=== PATIENT | female | born 1990 | race Caucasian/White ===

== ENCOUNTER 2020-12-22 03:26 | Observation (INO) | payer BC, SELFPAY ==
[2020-12-22] VITALS (16 sets, daily range): BP systolic 118–153; BP diastolic 68–112; PULSE 87–117; RESP 14–27; TEMP 36.9–37.1; O2SAT 97–100; BMI 26.5
--- NOTE | ~2020-12-22 | US_ITS ---
EXAMINATION: US OB <=14 wk fetus w TV DATE: 12/22/2020 09:28 INDICATION: Vaginal bleeding. Beta-hCG is 203 mIU/mL. TECHNIQUE: Real-time transabdominal and transvaginal pelvic ultrasound was performed. COMPARISON: None. FINDINGS: TRANSABDOMINAL ULTRASOUND: The uterus measures 6.7 x 3.6 x 4.5 cm. TRANSVAGINAL ULTRASOUND: The endometrial complex measures 4 mm in diameter. There is no visible intra uterine gestational sac. The right ovary measures 2.4 x 1.8 x 2.4 cm. There is a 5.4 x 3.2 x 5.3 cm left adnexal mass that is hyperechoic with area of shadowing and small cystic areas. There is no free fluid in the pelvis. IMPRESSION: 1. No visible intrauterine gestational sac, which may be normal in early . Spontaneous abor tion and ectopic are not excluded. Serial beta-hCGs are recommended. 2. Left adnexal mass. The differential diagnosis includes dermoid, hemorrhagic cyst, and less likely ectopic . Reviewed, dictated and finalized at location A. IMPRESSION: 1. No visible intrauterine gestational sac, which may be normal in early pregn alexey. Spontaneous and ectopic are not excluded. Serial beta- hCGs are recommended. 2. Left adnexal mass. The differential diagnosis includes dermoid, hemorrhagic cyst, and less likely ectopic .
--- NOTE | ~2020-12-22 | CT_ITS ---
EXAMINATION: CT brain wo con EXAM DATE: 12/22/2020 07:30 INDICATION: Seizure, left frontal head injury, eye bruising. Hallucination. TECHNIQUE: Spiral CT of the head was performed without contrast. Axial, coronal and sagittal images were reviewed. The dose-length product (DLP) for this examination was 605.33 mGy-cm. The exposure w as tailored according to patient size, and iterative reconstruction (ASIR) was used as additional dos e reduction technique. There is no prior study for comparison. FINDINGS: There is no acute intraparenchymal hemorrhage. No evidence of intraparenchymal brain mass lesion. No evidence of acute infarction. There is no mass effect or midline shift. The ventricles are normal in size. There are no extra-axial collections. There are no acute calvarial fractures. T he orbits are unremarkable. Soft tissue is unremarkable. The visualized sinuses and mastoid air kosta ls are well aerated. IMPRESSION: 1. No acute intracranial findings. Reviewed, dictated and finalized at location A.
--- NOTE | 2020-12-22 03:47 | PC.NURSE ---
Pt presents to ED with homicidal and suicidal ideations. Pt states she has been having thoughts of committing suicide for at least a year and plans to use a gun. Pt also states that she has plans to commit homicide on her using a gun and has had these thoughts for the past several months. Mom presented to ED with pt. Pt states she is a daily drinker of approx 1 gallon of vodka per day. Pt states she has been attempting to become sober and has not had a drink in over 12 hours. Pt noted with visible tremors. Pt placed on suicide precautions, body and clothing searched for weapons, all clothing removed and placed in personal belonging bags, labeled and placed in locked cabinet. Pt undressed and dressed in teal scrubs. All lose and unnecessary items removed from room, personal items placed in locked cabinet. Pt remains on remote sensing specialist due to dt's. Urine specimen collected and bedside positive. Pt vitals are stable and pt noted to be alert and oriented x3-4. Pt in no obvious distress. Sitter present at bedside.
--- NOTE | 2020-12-22 04:15 | ECG_ITS ---
Measurements Intervals [place] Rate: 94 P: 37 ME: 131 QRS: 74 QRSD: 94 T: 60 QT: 381 QTc: 478 Interpretive Statements SINUS RHYTHM MINIMAL Q WAVES- DIFFUSE LEADS BORDERLINE ECG Electronically Signed On 12-22-2020 9:37:25 CDT by Mark Mansfield D.O.
--- NOTE | 2020-12-22 04:24 | PC.NURSE ---
EDMD presented to bedside.
[2020-12-22] MEDS: ONDANSETRON INJ 4 MG/2 ML VIAL IV PUSH (04:45)
[2020-12-22] MEDS: LACTATED RINGERS 1,000 ML 999 ML IV CONT (04:45)
[2020-12-22] MEDS: LORazepam INJ (*CRX) 2 MG/ML VIAL IV PUSH (04:46)
[2020-12-22 04:48] LABS: Basophils Absolute Auto 0.1 K/mm3 (0.0-0.1); Basophils Percent Auto 1.3 % (0.2-1.2); Eosinophils Absolute Auto 0.1 K/mm3 (0-0.3); Eosinophils Percent Auto 1.9 % (0-4.4); Hematocrit 40.8 % (37.0-47.0); Hemoglobin 14.3 g/dL (12.0-15.0); Immature Granulocyte Absolute 0.02 K/mm3 (0.00-0.031); Immature Granulocyte Percent A 0.3 % (0-0.5); Lymphocytes Absolute Auto 1.11 K/mm3 (0.9-3.2); Lymphocytes Percent Auto 16.4 % (18.3-44.2); Mean Corpuscular Hemoglobin 30.8 pg (26-34); Mean Corpuscular Volume 87.9 fl (80-100); Monocytes Absolute Auto 0.4 K/mm3 (0.1-0.6); Monocytes Percent Auto 6.2 % (2.6-8.5); Neutrophils Percent Auto 73.9 % (45.5-73.1); Platelet Count Result 182 k/mm3 (150-375); Red Blood Count 4.64 M/mm3 (4.2-5.4); Red Cell Distribution Width 13.2 % (11.5-14.5); White Blood Count 6.8 K/mm3 (4.5-10.0)
[2020-12-22 04:56] LABS: Add Urine Microscopic? YES; Appearance Urine Cloudy (Clear); Bacteria Urine Trace /hpf; Bilirubin Urine Negative (Negative); Blood Urine 2+ (Negative); Color Urine Yellow (Yellow); Glucose Urine UA Negative (Negative); Ketones Urine 1+ mg/dL (Negative); Leukocyte Esterase Ur Negative LEU/UL (Negative); Mucus Urine Heavy /lpf; Nitrate Urine Negative (Negative); Protein Urine 2+ mg/dL (Negative); Specific Grav Ur 1.027 (1.001-1.035); Squamous Epithelial Cell Urine Many /hpf (Few); WBC Urine 0-3 /hpf
[2020-12-22 05:02] LABS: INR 0.9; Prothrombin Time 13.2 Seconds (11.1-14.7)
[2020-12-22 05:04] LABS: Acetaminophen < 10 ug/mL (10-30); Ammonia < 9 umol/L (9-30); Ethanol < 10 mg/dL (<10); Salicylate < 1.0 mg/dL (2-20)
[2020-12-22 05:05] LABS: Alanine Aminotransferase 66 U/L (4-35); Albumin Level 4.7 g/dL (3.5-5.1); Alkaline Phosphatase 77 U/L (38-126); Anion Gap 15 mmol/L (8-16); Aspartate Amino Transferase 113 U/L (14-36); Bilirubin,Total 1.4 mg/dL (0.2-1.3); Blood Urea Nitrogen 8 mg/dL (7-17); Calcium 9.4 mg/dL (8.4-10.2); Carbon Dioxide 25 mmol/L (22-30); Chloride 99 mmol/L (98-107); Estimated CRCL calculation 114 ml/min; Estimated Glomerular Filt Rate > 60; Glucose 81 mg/dL (65-105); Potassium 3.1 mmol/L (3.4-5.0); Sodium 139 mmol/L (137-145)
[2020-12-22 05:20] LABS: Amphetamine Screen Urine Negative (Negative); Barbiturate Screen Urine Negative (Negative); Benzodiazepines Screen Urine Negative (Negative); Cannabinoid Screen Urine Negative (Negative); Cocaine Screen Urine Positive (Negative); Methadone Screen Urine Negative (Negative); Opiate Screen Urine Negative (Negative); Phencyclidine Screen Urine Negative (Negative)
[2020-12-22 05:22] LABS: Beta HCG Quantitative 202.61 mIU/ML
--- NOTE | 2020-12-22 07:20 | ED.ALCOHOL ---
HPI - Alcohol General Chief Complaint: Alcohol Stated Complaint: etoh withdrawl seizure Time Seen by Provider: 12/22/20 03:39 Source: patient Mode of arrival: ambulatory Limitations: no limitations History of Present Illness HPI narrative: This is a 30 year old female with history of alcohol abuse who presents for evaluation of alcohol withdrawal. She states she has been drinking approximately a gallon of vodka per day for 5 months. She states her last drink of alcohol was 12 hours ago . Two hours after her last drink she started having hallucinations with nausea and restlessness. She thinks she had a seizure last week. She was told that she was having convulsions. She denies headache, chest pain, sob. She states she thought she was on her menstrual cycle but her test was positive here. She reports vaginal bleeding currently that has been going on for a few days. She denies abdominal pain. Related Data Allergies Allergy/AdvReac Type Severity Reaction Status Date / Time No Known Allergies Allergy Mild Verified 08/29/10 17:39 Review of Systems Review of Systems: All systems reviewed & are unremarkable except as noted in HPI and below PMFSH Past Medical History Medical History Alcohol abuse Surgical History Surgical History (Updated 12/22/20 @ 07:29 by Sol Salinas MD) No pertinent past surgical history Social History Social History (Updated 12/22/20 @ 07:29 by Sol Salinas MD) Smoking status: Never smoker Alcohol intake: current Gender identity (if verbalized by the patient): Female Exam Const: General: alert Orientation/consciousness: patient oriented x3 HENMT: Other: left periorbital ecchymosis Eyes: Pupils: Equal, round and reactive pupils present EOM: EOMs intact bilaterally Resp: Effort & Inspection: normal respiratory effort and no retractions Auscultation: clear to auscultation bilaterally Cardio: Rate: regular rate Rhythm: regular rhythm Heart sounds: no murmurs GI: GI Palp: Yes Soft to palpation, No Tenderness to palpation present (GI) and No Guarding due to palpation present (GI) Auscultation: normal bowel sounds Skin: General skin exam: normal color Rashes: no rashes Neuro: General: patient oriented x3, moves all extremities and CN's II-XI intact bilaterally Other: tremulous Psych: Affect: Anxious affect present Course Consultations Consultation #1: I Discussed case with DR. Parikh. He accepts patient to IMU for alcohol withdrawal. I will place order for librium 25 mg q 6 hours with banana bag. He is aware patient is and she is pending US. She is likely have a miscarriage. Date: 12/22/20 Time: 08:10 Vital Signs Vital signs: Vital Signs Temperature 98.4 F 12/22/20 03:30 Pulse Rate 99 12/22/20 03:30 Respiratory Rate 18 12/22/20 03:30 Pulse Oximetry 100 12/22/20 03:30 Temperature 98.4 F 12/22/20 03:30 Pulse Rate 111 H 12/22/20 08:00 Respiratory Rate 14 12/22/20 08:00 Blood Pressure 153/103 H 12/22/20 08:00 Pulse Oximetry 99 12/22/20 08:00 MDM - Alcohol Lab Data Attestation: I reviewed the patient's lab results. Result diagrams: 12/22/20 04:27 12/22/20 04:27 Labs: Lab Results 12/22/20 12/22/20 12/22/20 Range/Units 04:27 04:27 04:27 WBC 6.8 (4.5-10.0) K/mm3 RBC 4.64 (4.2-5.4) M/mm3 Hgb 14.3 (12.0-15.0) g/dL Hct 40.8 (37.0-47.0) % MCV 87.9 (80-100) fl MCH 30.8 (26-34) pg MCHC 35.0 (32-36) g/dl RDW 13.2 (11.5-14.5) % Plt Count 182 (150-375) k/mm3 MPV 9.0 (7.4-10.4) fl Immature Gran % (Auto) 0.3 (0-0.5) % Neut % (Auto) 73.9 H (45.5-73.1) % Lymph % (Auto) 16.4 L (18.3-44.2) % Sebastian % (Auto) 6.2 (2.6-8.5) % Eos % (Auto) 1.9 (0-4.4) % Baso % (Auto) 1.3 H (0.2-1.2) % Lymph # (Auto) 1.11 (0.9-3.2) K/mm3 Sebastian # (Auto) 0.4 (0.1-0.6) K/mm3 Eos # (Auto) 0.1 (0-
[2020-12-22] MEDS: THIAMINE HCL INJ 100 MG, FOLIC ACID INJ 1 MG, MULTIVITAMINS-12 INJ VIAL 1 5 ML, MULTIVI... IV CONT (09:30)
--- NOTE | 2020-12-22 11:00 | ADMGEN ---
This patient, Bal Johnson, was admitted to Intensive Care Unit-11. Patient/family oriented to hospital policies and general routines including ID bracelet, bed and alarms, visiting hours, pain management, procedures, bathroom and other care routines, personal items, smoking policy, room service/diet, and visiting hours. Information on how to activate the Rapid Response Team has been discussed. Patient/Family are encouraged to report perceived risks to care and to ask questions if they do not understand what they are told or what they should do.
[2020-12-22] MEDS: LORazepam INJ (*CRX) 2 MG/ML VIAL 1 MG IV PUSH (11:25)
[2020-12-22] MEDS: chlordiazePOXIDE (*CRX) 25 MG CAPSULE PO ×3 (11:26→23:07)
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
[2020-12-22] MEDS: POTASSIUM CHLORIDE 20 MEQ TABLET PO (17:12)
[2020-12-22] MEDS: SODIUM CHLORIDE 0.9% IV 1,000 ML 70 ML IV CONT (20:46)
[2020-12-22] MEDS: ACETAMINOPHEN 325 MG TABLET 650 MG PO (23:07)
[2020-12-23] VITALS (10 sets, daily range): BP systolic 111–134; BP diastolic 75–89; PULSE 79–103; RESP 15–22; TEMP 36.7–37.1; O2SAT 97–100
[2020-12-23 05:01] LABS: Basophils Absolute Auto 0.1 K/mm3 (0.0-0.1); Basophils Percent Auto 1.1 % (0.2-1.2); Eosinophils Absolute Auto 0.3 K/mm3 (0-0.3); Eosinophils Percent Auto 7.2 % (0-4.4); Hematocrit 37.6 % (37.0-47.0); Hemoglobin 13.1 g/dL (12.0-15.0); Immature Granulocyte Absolute 0.01 K/mm3 (0.00-0.031); Immature Granulocyte Percent A 0.2 % (0-0.5); Lymphocytes Absolute Auto 1.05 K/mm3 (0.9-3.2); Lymphocytes Percent Auto 22.3 % (18.3-44.2); Mean Corpuscular HGB Conc 34.8 g/dl (32-36); Mean Corpuscular Hemoglobin 30.8 pg (26-34); Mean Corpuscular Volume 88.3 fl (80-100); Mean Platelet Volume 9.8 fl (7.4-10.4); Monocytes Absolute Auto 0.4 K/mm3 (0.1-0.6); Monocytes Percent Auto 7.7 % (2.6-8.5); Neutrophils Absolute Auto 2.9 K/mm3 (1.3-6.7); Neutrophils Percent Auto 61.5 % (45.5-73.1); Platelet Count Result 148 k/mm3 (150-375); Red Blood Count 4.26 M/mm3 (4.2-5.4); Red Cell Distribution Width 12.7 % (11.5-14.5); White Blood Count 4.7 K/mm3 (4.5-10.0)
[2020-12-23] MEDS: chlordiazePOXIDE (*CRX) 25 MG CAPSULE PO (05:05)
[2020-12-23] MEDS: SUMAtriptan SUCCINATE 6 MG/0.5 ML VIAL SUB-Q (05:05)
[2020-12-23 05:15] LABS: Alanine Aminotransferase 43 U/L (4-35); Albumin Level 3.6 g/dL (3.5-5.1); Alkaline Phosphatase 56 U/L (38-126); Anion Gap 5 mmol/L (8-16); Aspartate Amino Transferase 61 U/L (14-36); Bilirubin,Total 0.8 mg/dL (0.2-1.3); Blood Urea Nitrogen 7 mg/dL (7-17); Calcium 8.6 mg/dL (8.4-10.2); Carbon Dioxide 28 mmol/L (22-30); Chloride 104 mmol/L (98-107); Estimated CRCL calculation 96 ml/min; Estimated Glomerular Filt Rate > 60; Glucose 98 mg/dL (65-105); Magnesium 1.8 mg/dL (1.6-2.3); Phosphorus 2.9 mg/dL (2.5-4.5); Potassium 3.6 mmol/L (3.4-5.0); Sodium 137 mmol/L (137-145)
[2020-12-23 05:26] LABS: Beta HCG Quantitative 57.25 mIU/ML
[2020-12-23] MEDS: LORazepam INJ (*CRX) 2 MG/ML VIAL 1 MG IV PUSH ×2 (05:34→10:38)
[2020-12-23] MEDS: POTASSIUM CHLORIDE 20 MEQ TABLET 40 MEQ PO (09:55)
[2020-12-23] MEDS: THIAMINE HCL 100 MG TABLET PO (09:57)
[2020-12-23] MEDS: ACETAMINOPHEN 325 MG TABLET 650 MG PO ×2 (09:57→19:58)
[2020-12-23] MEDS: FOLIC ACID 1 MG TABLET PO (09:57)
[2020-12-23] MEDS: MULTIVIT/MIN/PREN/FOL AC/IRON TABLET 1 TAB PO (09:58)
[2020-12-23] MEDS: MAGNESIUM OXIDE 400 MG TABLET PO (10:48)
[2020-12-23] MEDS: chlordiazePOXIDE (*CRX) 25 MG CAPSULE 50 MG PO ×2 (12:45→18:18)
--- NOTE | 2020-12-23 15:02 | PM.IMPN ---
Progress Note: A&P Assessment and Plan (1) Alcohol withdrawal delirium: Code(s): F10.231 - Alcohol dependence with withdrawal delirium Status: Acute Assessment and Plan: 12/23/20 15:03 Patient is 30 y/o female with hx of alcohol and drug abuse patient presented emergency department stating this see drains 1 gal of vodka every day and and doing it for last 5 months and 2 hours prior to coming to emergency depart she was hallucinating and getting into withdrawal, upon arrival patient alcohol level was less than 10 and she was positive for cocaine, patient was placed on CIWA protocol with Librium 25 mg every 6 hours however today's patient quite anxious, will increase Librium to 50 mg every 6 hours reassess tomorrow, patient is sexually active, her test was positive, and patient has a vaginal bleeding, pelvic ultrasound did not show any visible intrauterine gestational sac, her initial HCG levels were 202 upon arrival and today is 57 suggesting most likely is patient and spontaneous unlikely ectopic , there was a concern the patient suicidal ideation there is a sitter in the room, will continue to monitor patient if remains clinically stable will have crisis team evaluate the patient patient may benefit [facility]. (2) Suicidal ideation: Code(s): R45.851 - Suicidal ideations Status: Acute Assessment and Plan: Plan is above (3) IUP (intrauterine ), incidental: Code(s): Z33.1 - state, incidental Status: Acute Assessment and Plan: Plan is above (4) Crack cocaine use: Code(s): F14.90 - Cocaine use, unspecified, uncomplicated Status: Acute (5) Adnexal mass: Code(s): N94.89 - Other specified conditions associated with female genital organs and menstrual cycle Status: Acute (6) Elevated LFTs: Code(s): R79.89 - Other specified abnormal findings of blood chemistry Status: Acute Assessment and Plan: Most likely secondary to alcohol abuse trending down (7) Hypokalemia: Code(s): E87.6 - Hypokalemia Status: Acute Assessment and Plan: Will monitor and supplement (8) Tobacco abuse: Code(s): Z72.0 - Tobacco use Status: Acute (9) DVT prophylaxis: Code(s): Z29.9 - Encounter for prophylactic measures, unspecified Status: Acute Assessment and Plan: SCD Additional Plan Patient has been admitted to the IMU with a sitter. Patient has been started on IV fluids with electrolytes. She has been started on scheduled Librium. Continue CIWA protocol. Ativan available as needed for signs or symptoms of withdrawal. Suicide and seizure precautions. Will do serial beta HCG levels. Replace potassium. Follow LFTs. Suspect elevated LFTs related to alcoholic hepatitis. This should improve with stain from alcohol. Further workup if liver enzymes do not improve as expected. She was educated extensively about the benefits obtained from alcohol, tobacco and drug use. Consider ectopic if her beta hCG level increases. Will need follow-up ultrasound for the adnexal mass. Crisis to evaluate the patient when she is more stable. SCDs for DVT prophylaxis Subjective Date/time seen: 12/23/20 15:03 Patient is 30 y/o female with hx of alcohol and drug abuse patient presented emergency department stating this see drains 1 gal of vodka every day and and doing it for last 5 months and 2 hours prior to coming to emergency depart she was hallucinating and getting into withdrawal, upon arrival patient alcohol level was less than 10 and she was positive for cocaine, patient was placed on CIWA protocol with Librium 25 mg every 6 hours however today's patient quite anxious, will increase Librium to 50 mg every 6 hours reassess tomorrow, patient is sexually active, her test was positive, and patient has a vaginal bleeding, pelvic
[2020-12-23] MEDS: SODIUM CHLORIDE 0.9% IV 1,000 ML 70 ML IV CONT (16:00)
[2020-12-24] VITALS: PULSE 75
--- NOTE | 2020-12-24 01:02 | PC.NURSE ---
Pt states she wants to sign out AMA. Explained to pt that she cannot leave AMA due to suicidal ideation. Explained that security will be notified if pt tries to leave and that if necessary, the police will be notified. Explained that pt had to be medically cleared before Crisis can come and evaluate pt. Pt states that doesn't make any sense. I could just lie and say that I will not hurt myself. Pt again states she wants to leave AMA. Situation re-explained. Pt also asking for her cell phone. Pt has already been made aware that she cannot have access to her personal property while on suicide precautions. Notified hospital housekeeper of pt's request to speak with her. Security sitting outside of pt's door. ICU charge at pt's bedside.
[2020-12-24] MEDS: LORazepam INJ (*CRX) 2 MG/ML VIAL 1 MG IV PUSH ×2 (01:18→04:40)
[2020-12-24] MEDS: chlordiazePOXIDE (*CRX) 25 MG CAPSULE 50 MG PO ×2 (01:18→06:00)
--- NOTE | 2020-12-24 01:22 | PC.NURSE ---
Pt tearful. Asking how security could keep her in the room. States I can't believe this is Kaye. Pt agreeable to take Librium and Ativan in attempt to rest tonight.
--- NOTE | 2020-12-24 01:24 | PC.NURSE ---
Asked to speak to patient. Pt feels she is being held prisoner. She is worried about her cats at home and bills that she needs to pay. Explained that when she was admitted she expressed suicidal thoughts and we had to to put suicide precautions in place for her safety. Further explained that even if she is no longer suicidal until crisis clears her she needs to stay in the hospital for her safety. Pt wanted to know what would happen if she tried to leave and explained that security, currently outside door, would attempt to stop her. Pt agrees to staying at this time. Given Ativan for increased agitation and given some candy for withdrawal cravings.
[2020-12-24 04:00] VITALS: PULSE 101
[2020-12-24 04:25] LABS: Hematocrit 37.2 % (37.0-47.0); Hemoglobin 12.9 g/dL (12.0-15.0); Mean Corpuscular HGB Conc 34.7 g/dl (32-36); Mean Corpuscular Hemoglobin 30.6 pg (26-34); Mean Corpuscular Volume 88.2 fl (80-100); Mean Platelet Volume 9.9 fl (7.4-10.4); Platelet Count Result 155 k/mm3 (150-375); Red Blood Count 4.22 M/mm3 (4.2-5.4); Red Cell Distribution Width 12.6 % (11.5-14.5); White Blood Count 5.4 K/mm3 (4.5-10.0)
[2020-12-24 04:36] LABS: Alanine Aminotransferase 43 U/L (4-35); Albumin Level 3.8 g/dL (3.5-5.1); Alkaline Phosphatase 58 U/L (38-126); Anion Gap 8 mmol/L (8-16); Aspartate Amino Transferase 53 U/L (14-36); Bilirubin,Total 0.3 mg/dL (0.2-1.3); Blood Urea Nitrogen 9 mg/dL (7-17); Carbon Dioxide 25 mmol/L (22-30); Chloride 104 mmol/L (98-107); Estimated CRCL calculation 96 ml/min; Estimated Glomerular Filt Rate > 60; Glucose 125 mg/dL (65-105); Magnesium 1.7 mg/dL (1.6-2.3); Potassium 4.1 mmol/L (3.4-5.0); Sodium 137 mmol/L (137-145)
[2020-12-24 04:51] LABS: Beta HCG Quantitative 29.47 mIU/ML
[2020-12-24] MEDS: SODIUM CHLORIDE 0.9% IV 1,000 ML 70 ML IV CONT (07:35)
[2020-12-24 07:59] VITALS: BP 125/79; PULSE 96; RESP 21; TEMP 36.9; O2SAT 100
[2020-12-24 08:00] VITALS: PULSE 98
[2020-12-24] MEDS: THIAMINE HCL 100 MG TABLET PO (08:54)
[2020-12-24] MEDS: FOLIC ACID 1 MG TABLET PO (08:54)
[2020-12-24] MEDS: MULTIVIT/MIN/PREN/FOL AC/IRON TABLET 1 TAB PO (08:54)
--- NOTE | 2020-12-24 10:15 | PM.IMPN ---
Progress Note: A&P Assessment and Plan (1) Alcohol withdrawal delirium: Code(s): F10.231 - Alcohol dependence with withdrawal delirium Status: Acute Assessment and Plan: 12/24/20 10:15 12/23 Patient is 30 y/o female with hx of alcohol and drug abuse patient presented emergency department stating this see drains 1 gal of vodka every day and and doing it for last 5 months and 2 hours prior to coming to emergency depart she was hallucinating and getting into withdrawal, upon arrival patient alcohol level was less than 10 and she was positive for cocaine, patient was placed on CIWA protocol with Librium 25 mg every 6 hours however today's patient quite anxious, will increase Librium to 50 mg every 6 hours reassess tomorrow, patient is sexually active, her test was positive, and patient has a vaginal bleeding, pelvic ultrasound did not show any visible intrauterine gestational sac, her initial HCG levels were 202 upon arrival and today is 57 suggesting most likely is patient and spontaneous unlikely ectopic , there was a concern the patient suicidal ideation there is a sitter in the room, will continue to monitor patient if remains clinically stable will have crisis team evaluate the patient patient may benefit [facility]. 12/24 today patient is clinically stable, alert and oriented x3, her electrolytes close to normal, will have crisis team evaluate the patient, patient will benefit going [facility]. Patient will be evaluated by crisis team and further recommendation to follow (2) Suicidal ideation: Code(s): R45.851 - Suicidal ideations Status: Acute Assessment and Plan: Plan is above (3) IUP (intrauterine ), incidental: Code(s): Z33.1 - state, incidental Status: Acute Assessment and Plan: Plan is above (4) Crack cocaine use: Code(s): F14.90 - Cocaine use, unspecified, uncomplicated Status: Acute (5) Adnexal mass: Code(s): N94.89 - Other specified conditions associated with female genital organs and menstrual cycle Status: Acute (6) Elevated LFTs: Code(s): R79.89 - Other specified abnormal findings of blood chemistry Status: Acute Assessment and Plan: Most likely secondary to alcohol abuse trending down (7) Hypokalemia: Code(s): E87.6 - Hypokalemia Status: Acute Assessment and Plan: Will monitor and supplement (8) Tobacco abuse: Code(s): Z72.0 - Tobacco use Status: Acute (9) DVT prophylaxis: Code(s): Z29.9 - Encounter for prophylactic measures, unspecified Status: Acute Assessment and Plan: SCD Additional Plan Patient has been admitted to the IMU with a sitter. Patient has been started on IV fluids with electrolytes. She has been started on scheduled Librium. Continue CIWA protocol. Ativan available as needed for signs or symptoms of withdrawal. Suicide and seizure precautions. Will do serial beta HCG levels. Replace potassium. Follow LFTs. Suspect elevated LFTs related to alcoholic hepatitis. This should improve with stain from alcohol. Further workup if liver enzymes do not improve as expected. She was educated extensively about the benefits obtained from alcohol, tobacco and drug use. Consider ectopic if her beta hCG level increases. Will need follow-up ultrasound for the adnexal mass. Crisis to evaluate the patient when she is more stable. SCDs for DVT prophylaxis Subjective Date/time seen: 12/24/20 10:15 12/23 Patient is 30 y/o female with hx of alcohol and drug abuse patient presented emergency department stating this see drains 1 gal of vodka every day and and doing it for last 5 months and 2 hours prior to coming to emergency depart she was hallucinating and getting into withdrawal, upon arrival patient harman
--- NOTE | 2020-12-24 13:04 | PM.DS ---
DS: Admitting Diagnosis Admitting Diagnosis Admitting Diagnosis: alcohol drug abuse with suicidal ideation. DS: Discharge Diagnosis Discharge Diagnosis (1) Alcohol withdrawal delirium: Code(s): F10.231 - Alcohol dependence with withdrawal delirium Status: Acute Assessment and Plan: 12/24/20 10:15 12/23 Patient is 30 y/o female with hx of alcohol and drug abuse patient presented emergency department stating this see drains 1 gal of vodka every day and and doing it for last 5 months and 2 hours prior to coming to emergency depart she was hallucinating and getting into withdrawal, upon arrival patient alcohol level was less than 10 and she was positive for cocaine, patient was placed on CIWA protocol with Librium 25 mg every 6 hours however today's patient quite anxious, will increase Librium to 50 mg every 6 hours reassess tomorrow, patient is sexually active, her test was positive, and patient has a vaginal bleeding, pelvic ultrasound did not show any visible intrauterine gestational sac, her initial HCG levels were 202 upon arrival and today is 57 suggesting most likely is patient and spontaneous unlikely ectopic , there was a concern the patient suicidal ideation there is a sitter in the room, will continue to monitor patient if remains clinically stable will have crisis team evaluate the patient patient may benefit going to [facility]. 12/24 today patient is clinically stable, alert and oriented x3, her electrolytes close to normal, will have crisis team evaluate the patient, patient will benefit going into [facility]. Patient will be evaluated by crisis team and further recommendation to follow (2) Suicidal ideation: Code(s): R45.851 - Suicidal ideations Status: Acute Assessment and Plan: Plan is above (3) IUP (intrauterine ), incidental: Code(s): Z33.1 - state, incidental Status: Acute Assessment and Plan: Plan is above (4) Crack cocaine use: Code(s): F14.90 - Cocaine use, unspecified, uncomplicated Status: Acute (5) Adnexal mass: Code(s): N94.89 - Other specified conditions associated with female genital organs and menstrual cycle Status: Acute (6) Elevated LFTs: Code(s): R79.89 - Other specified abnormal findings of blood chemistry Status: Acute Assessment and Plan: Most likely secondary to alcohol abuse trending down (7) Hypokalemia: Code(s): E87.6 - Hypokalemia Status: Acute Assessment and Plan: Will monitor and supplement (8) Tobacco abuse: Code(s): Z72.0 - Tobacco use Status: Acute (9) DVT prophylaxis: Code(s): Z29.9 - Encounter for prophylactic measures, unspecified Status: Acute Assessment and Plan: SCD DS: Summary Hospital Course Reason for hospitalization: 30yo female with hx of alcohol abuse here after experiencing withdrawal symptoms. Patient had moderate alcohol use in her teenage years. In early she drank heavier volumes for short period time but ultimately went to an alcohol rehab facility in [place]. She states she was sober for 5 years. She began using drugs starting in July specifically cocaine. No clear specific stressor but states that she had multiple small stressors that contributed to her relapse. Patient is vague on details. She believes she began drinking short time later has been binge drinking over the past 4-5 months drinking up to a gallon of vodka a day. She was at [facility] for alcohol rehab in October but was suicidal and thus sent to [facility] where she resided for few weeks. She refused medication treatments. She relapsed and started back drinking alcohol. She has been living at a hotel in [facility]. She denies providing sex for drugs or money. She was tested for HIV and hepa
--- NOTE | 2020-12-24 13:49 | PC.NURSE ---
Pt to be discharged home on a safety contract at this time. Discharge instructions given to patient, verbalizes understanding.
== END 2020-12-24 13:49 | disposition home or self-care (01) ==
LOC: ANHED 04:19 → ANHICU 09:33
PROVIDERS: Admitting Provider Internal Medicine; Emergency Provider General Practice; PCP Internal Medicine; Visit Provider Family Medicine
DX: F10.231 Alcohol dependence with withdrawal delirium (principal); R45.851 Suicidal ideations; Z33.1 Pregnant state, incidental; F14.90 Cocaine use, unspecified, uncomplicated; N94.89 Other specified conditions associated with female genital organs and menstrual cycle; R79.89 Other specified abnormal findings of blood chemistry; E87.6 Hypokalemia; F17.210 Nicotine dependence, cigarettes, uncomplicated
CPT/HCPCS: 36415; 70450; 76801; 76817; 80053; 80307; 81001; 81025; 82140; 83735; 84100; 84443; 84702; 85025; 85027; 85461; 85610; 85730; 93005; 96361; 96372; 96374; 96375; 96376; 99285; A9270; G0378; J2060; J2405; J3030; J3411; J3475; J7030; J7042; J7120

== ENCOUNTER 2021-01-24 16:31 | Emergency (ER) | payer BC, SELFPAY ==
[2021-01-24 16:41] VITALS: BP 149/106; PULSE 112; RESP 14; TEMP 36.6; O2SAT 99
[2021-01-24 16:56] LABS: Basophils Absolute Auto 0.1 K/mm3 (0.0-0.1); Basophils Percent Auto 1.5 % (0.2-1.2); Eosinophils Absolute Auto 0.1 K/mm3 (0-0.3); Eosinophils Percent Auto 1.3 % (0-4.4); Hematocrit 39.8 % (37.0-47.0); Hemoglobin 13.6 g/dL (12.0-15.0); Immature Granulocyte Absolute 0.01 K/mm3 (0.00-0.031); Immature Granulocyte Percent A 0.2 % (0-0.5); Lymphocytes Absolute Auto 1.18 K/mm3 (0.9-3.2); Lymphocytes Percent Auto 22.1 % (18.3-44.2); Mean Corpuscular HGB Conc 34.2 g/dl (32-36); Mean Corpuscular Hemoglobin 31.3 pg (26-34); Mean Corpuscular Volume 91.7 fl (80-100); Mean Platelet Volume 9.1 fl (7.4-10.4); Monocytes Absolute Auto 0.3 K/mm3 (0.1-0.6); Monocytes Percent Auto 5.6 % (2.6-8.5); Neutrophils Absolute Auto 3.7 K/mm3 (1.3-6.7); Neutrophils Percent Auto 69.3 % (45.5-73.1); Platelet Count Result 165 k/mm3 (150-375); Red Blood Count 4.34 M/mm3 (4.2-5.4); Red Cell Distribution Width 14.6 % (11.5-14.5); White Blood Count 5.4 K/mm3 (4.5-10.0)
[2021-01-24 17:06] LABS: Alanine Aminotransferase 82 U/L (4-35); Albumin Level 4.3 g/dL (3.5-5.1); Alkaline Phosphatase 92 U/L (38-126); Anion Gap 11 mmol/L (8-16); Aspartate Amino Transferase 130 U/L (14-36); Bilirubin,Total 0.4 mg/dL (0.2-1.3); Blood Urea Nitrogen 7 mg/dL (7-17); Calcium 9.2 mg/dL (8.4-10.2); Carbon Dioxide 27 mmol/L (22-30); Chloride 105 mmol/L (98-107); Estimated CRCL calculation 84 ml/min; Estimated Glomerular Filt Rate > 60; Glucose 150 mg/dL (65-105); Lipase 181 U/L (23-300); Potassium 3.3 mmol/L (3.4-5.0); Sodium 143 mmol/L (137-145)
[2021-01-24 17:14] LABS: Add Urine Microscopic? YES; Appearance Urine Cloudy (Clear); Bacteria Urine Trace /hpf; Bilirubin Urine Negative (Negative); Blood Urine Negative (Negative); Color Urine Yellow (Yellow); Glucose Urine UA Negative (Negative); Ketones Urine Negative (Negative); Leukocyte Esterase Ur 1+ LEU/UL (Negative); Nitrate Urine Negative (Negative); Protein Urine Negative (Negative); Specific Grav Ur 1.005 (1.001-1.035); Squamous Epithelial Cell Urine Many /hpf (Few); Urobilinogen Urine Negative mg/dL (<2.0)
[2021-01-24 18:48] VITALS: BP 112/68; PULSE 93; RESP 18; O2SAT 97
[2021-01-24 21:05] VITALS: BP 121/76; PULSE 91; RESP 18; TEMP 36.4; O2SAT 99
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
[2021-01-24 22:32] LABS: Magnesium 1.9 mg/dL (1.6-2.3)
[2021-01-24] MEDS: THIAMINE HCL INJ 100 MG, FOLIC ACID INJ 1 MG, MULTIVITAMINS-12 INJ VIAL 1 5 ML, MULTIVI... IV CONT (22:34)
[2021-01-24] MEDS: LORazepam INJ (*CRX) 2 MG/ML VIAL 0.5 MG IV PUSH (22:35)
[2021-01-24 23:02] LABS: Amphetamine Screen Urine Negative (Negative); Barbiturate Screen Urine Negative (Negative); Benzodiazepines Screen Urine Negative (Negative); Cannabinoid Screen Urine Negative (Negative); Cocaine Screen Urine Positive (Negative); Methadone Screen Urine Negative (Negative); Opiate Screen Urine Negative (Negative); Phencyclidine Screen Urine Negative (Negative)
[2021-01-24 23:13] LABS: Ethanol 367 mg/dL (<10)
[2021-01-24 23:29] VITALS: BP 114/83; PULSE 105; RESP 16; O2SAT 98
--- NOTE | 2021-02-01 15:22 | PC.NURSE ---
LATE ENTRY This note is being entered to document information to the patient's record. The following information was omitted on [01/24/21], by [Susan White RN]. IV fluids stopped per patient request stopped at 2235.
== END 2021-01-24 23:32 | disposition home or self-care (01) ==
PROVIDERS: Emergency Medicine; Emergency Provider Emergency Medicine; PCP Internal Medicine
DX: F10.10 Alcohol abuse, uncomplicated (principal); F17.210 Nicotine dependence, cigarettes, uncomplicated; Y90.8 Blood alcohol level of 240 mg/100 ml or more
CPT/HCPCS: 36415; 80053; 80307; 81001; 81025; 83690; 83735; 85025; 87086; 96374; 96375; 99284; J2060; J3411; J3475; J7121

== ENCOUNTER 2022-06-15 17:35 | Emergency (ER) | payer BC, SELFPAY ==
--- NOTE | 2022-06-15 17:39 | ED.FEMALEGU ---
HPI - Female Genitourinary General Stated complaint: uti Time Seen by Provider: 06/15/22 18:00 Source: patient and RN notes reviewed Mode of arrival: ambulatory Limitations: no limitations History of Present Illness HPI Narrative: 32-year-old female presents concern for urinary tract infection. Reports urine frequency. She reports she has had urine frequency quite often and while she spent some time [facility] she was given antibiotics a lot without any specific urine testing. She reports she has a primary care doctor appointment coming up soon. She denies fever, aches, chills, sweats, abdominal pain, nausea, flank pain, vomiting. She reports that a separate complaint runny nose, stuffy nose, sore throat, exposure to COVID. MD elicited complaint: UTI Related Data Home Medications Medication Instructions Recorded Confirmed fluoxetine 20 mg capsule 20 mg PO DAILY 06/15/22 06/15/22 fluticasone propionate 110 2 puff inhalation DAILY 06/15/22 06/15/22 mcg/actuation HFA aerosol inhaler (Flovent HFA) hydroxyzine pamoate 25 mg capsule 25 mg PO TID PRN Anxiety 06/15/22 06/15/22 lamotrigine 100 mg tablet 10 mg PO DAILY 06/15/22 06/15/22 Allergies Allergy/AdvReac Type Severity Reaction Status Date / Time No Known Allergies Allergy Mild Verified 06/15/22 17:45 Review of Systems Review of Systems: CONSTITUTIONAL: Denies malaise, chills, sweats, or fever. CARDIOVASCULAR: Denies chest pain, palpitations, or edema. HEENT: Reports rhinorrhea, nasal congestion sore throat RESPIRATORY: Denies cough or dyspnea. GASTROINTESTINAL: Denies abdominal pain, nausea, vomiting, diarrhea GENITOURINARY: Reports frequency. Denies dysuria, urgency, suprapubic pressure. Denies flank pain or hematuria. SKIN: Denies rash or itching. MUSCULOSKELETAL: Denies back pain or myalgia. All systems reviewed & are unremarkable except as noted in HPI and below PMFSH Past Medical History Medical History (Updated 06/15/22 @ 18:09 by Solange Osborn NP) Adnexal mass Alcohol abuse Alcohol withdrawal delirium Binge eating disorder DVT prophylaxis Elevated LFTs Hypokalemia IUP (intrauterine ), incidental Tobacco abuse Surgical History Surgical History No pertinent past surgical history Social History Social History (Updated 12/22/20 @ 11:46 by Kolby Matta MD) Social History: smokes 1/2ppf over the past few months. Alcohol use as mentioned above. She has been staying at a hotel in [place]. Has been smoking Crack cocaine. Recently tested for hepatitis and HIV which were negative. She refuses re-testing. Does not work. Denies selling sex for money/drugs. Full code. Nominates her mother to be the individual to make medical decisions for her if she is unable. Smoking packs per day: 0.5 Smoking cigarettes per day: 10.0 Years smoked: 1 Smoking pack-years: 0.50 Smoking status: Current every day smoker Tobacco type: cigarettes Alcohol intake: current Substance use type: crack/cocaine Other substance usage details: Gallon of vodka per day and daily cocaine use Gender identity (if verbalized by the patient): Female Sexual Orientation (if Verbalized by the Patient): Straight or Heterosexual Spiritual care concerns: No Comments At time of signature, agree with nursing past medical, surgical, social and family history. There is no relevant family history pertinent to the presenting complaint Exam Narrative: GENERAL: Well-appearing, well-nourished, and in no acute distress. HEAD: Normocephalic EYES: PERRLA, conjunctivae clear ENT: Nares clear, turbinates edematous and erythematous, clear discharge. Mucous membranes moist. TM pearly vanegas with dull light reflex bilaterally; no tragal tenderness. Oropharynx erythematous without lesions. Tonsils enlarged and without exudate, no drooling, no hoarseness, no trismus, uvula midline. NECK: Supple. No lym
[2022-06-15 17:47] VITALS: BP 133/67; PULSE 59; RESP 16; TEMP 36.5; O2SAT 98
== END 2022-06-15 18:20 | disposition home or self-care (01) ==
PROVIDERS: Emergency Provider Nurse Practitioner; PCP Internal Medicine
DX: R35.0 Frequency of micturition (principal); J06.9 Acute upper respiratory infection, unspecified; Z20.822 Contact with and (suspected) exposure to COVID-19; F17.210 Nicotine dependence, cigarettes, uncomplicated; F14.90 Cocaine use, unspecified, uncomplicated; F10.90 Alcohol use, unspecified, uncomplicated
CPT/HCPCS: 81003; 87086; 87088; 87426; 99213; C9803; G0463

== ENCOUNTER 2022-08-24 10:50 | Emergency (ER) | payer BC, SELFPAY ==
--- NOTE | ~2022-08-24 | CT_ITS ---
EXAMINATION: CT brain wo con DATE: 08/24/2022 12:01 INDICATION: Head injury. Blurred vision. History of previous ronda hole surgery for intracranial hemor rhage TECHNIQUE: Computed tomography (CT) of the head was performed without intravenous contrast. The mA wa s adjusted according to patient size. Iterative reconstruction technique was employed. Exam dose: 60 5.33 mGy-cm total exam DLP. COMPARISON: 12/22/2020 CT head FINDINGS: No intracranial mass lesion or hemorrhage or cerebrovascular accident. No midline shift or mass effect effect. Normal ventricular size. Normal vanegas-white matter differentiation. No subdural or epidural hematoma. The mastoid air cells and included paranasal sinuses are unremarkable. Probable cyst of the left skull. No skull fracture or bone destruction. IMPRESSION: No skull fracture or acute intracranial finding Reviewed, dictated and finalized at [facility] Reviewed, dictated and finalized at [facility] OR [facility]
[2022-08-24 11:04] VITALS: BP 154/94; PULSE 59; RESP 20; TEMP 36.1; O2SAT 96
--- NOTE | 2022-08-24 11:54 | ED.HEATRA ---
HPI - Head Injury General Chief complaint: Head Injury Stated complaint: Head Injury/ Migraines Time Seen by Provider: 08/24/22 11:23 Source: patient Mode of arrival: ambulatory Limitations: no limitations History of Present Illness HPI Narrative: This is a 32-year-old female that presents to the emergency department after a head injury today with headache. Reports she lost her balance and fell backwards off of her bed. She hit her head on a folding chair. She did not lose consciousness. Reports that she has had a pressure-like headache, nausea, and vomiting. Does report history of head injury in the past with a resultant brain bleed which concerned her and prompted her to be seen. Denies other injuries, focal numbness or weakness. Related Data Home Medications Medication Instructions Recorded Confirmed fluoxetine 20 mg capsule 20 mg PO DAILY 06/15/22 06/15/22 fluticasone propionate 110 2 puff inhalation DAILY 06/15/22 06/15/22 mcg/actuation HFA aerosol inhaler (Flovent HFA) hydroxyzine pamoate 25 mg capsule 25 mg PO TID PRN Anxiety 06/15/22 06/15/22 lamotrigine 100 mg tablet 10 mg PO DAILY 06/15/22 06/15/22 Allergies Allergy/AdvReac Type Severity Reaction Status Date / Time No Known Allergies Allergy Mild Verified 08/24/22 10:51 Review of Systems Review of Systems: CONSTITUTIONAL: Denies fever, EYES: Reports visual changes GASTROINTESTINAL: Reports nausea, vomiting MUSCULOSKELETAL: Denies back pain, joint pain, or myalgia. NEUROLOGIC: Reports headache. Denies numbness, or weakness. All systems reviewed & are unremarkable except as noted in HPI and below PMFSH Past Medical History Medical History (Updated 08/24/22 @ 13:23 by Arleen Vasquez PA-C) Adnexal mass Alcohol abuse Alcohol withdrawal delirium Binge eating disorder DVT prophylaxis Elevated LFTs Hypokalemia IUP (intrauterine ), incidental Tobacco abuse Surgical History Surgical History No pertinent past surgical history Social History Social History (Updated 12/22/20 @ 11:46 by Kolby Matta MD) Social History: smokes 1/2ppf over the past few months. Alcohol use as mentioned above. She has been staying at a hotel in [place]. Has been smoking Crack cocaine. Recently tested for hepatitis and HIV which were negative. She refuses re-testing. Does not work. Denies selling sex for money/drugs. Full code. Nominates her mother to be the individual to make medical decisions for her if she is unable. Smoking packs per day: 0.5 Smoking cigarettes per day: 10.0 Years smoked: 1 Smoking pack-years: 0.50 Smoking status: Current every day smoker Tobacco type: cigarettes Alcohol intake: current Substance use type: crack/cocaine Other substance usage details: Gallon of vodka per day and daily cocaine use Gender identity (if verbalized by the patient): Female Sexual Orientation (if Verbalized by the Patient): Straight or Heterosexual Spiritual care concerns: No Exam Narrative: GENERAL: Well-appearing, well-nourished, and in no acute distress. HEAD: Normocephalic, atraumatic. EYES: PERRLA and EOMI. ENT: Nares clear, no rhinorrhea or epistaxis. Mucous membranes moist. Oropharynx without tonsillar hypertrophy exudate or other lesions. Bilateral TMs pearly vanegas non-bulging NECK: Supple. No adenopathy or masses. No midline cervical spine tenderness CHEST: Clear to auscultation. No respiratory distress. No wheezes rales or rhonchi HEART: Regular rate and rhythm. No murmur heard. Normal peripheral pulses. EXTREMITIES: Normal range of motion. No edema or obvious deformity. Strength equal in bilateral upper and lower extremities (5/5) SKIN: Warm, dry, no rash. NEURO: No focal deficits. Alert and oriented x3. Cranial nerves II through XII grossly intact PSYCH: Normal mood and affect Course Course Emergency Course: Patient updated on work-up and ag
[2022-08-24] MEDS: ACETAMINOPHEN 500 MG TABLET 1000 MG PO (11:58)
[2022-08-24 13:54] VITALS: BP 124/76; PULSE 60; RESP 18; TEMP 36.4; O2SAT 98
== END 2022-08-24 13:54 | disposition home or self-care (01) ==
PROVIDERS: Emergency Provider Physician Assistant; PCP Internal Medicine
DX: S06.0X0A Concussion without loss of consciousness, initial encounter (principal); F17.210 Nicotine dependence, cigarettes, uncomplicated; W06.XXXA Fall from bed, initial encounter
CPT/HCPCS: 70450; 99284; A9270

== ENCOUNTER 2023-03-22 08:54 | Emergency (ER) | payer BC, SELFPAY ==
--- NOTE | ~2023-03-22 | US_ITS ---
US soft tissue abdomen DATE: 03/22/2023 12:07 INDICATION: Possible abscess. Recent abdominal/umbilical surgery on 03/04/2023. Erythema around the kumar ture. TECHNIQUE: Real-time and color flow imaging of the periumbilical soft tissues COMPARISON: None FINDINGS: Increased vascularity noted is noted in the periumbilical area. There is hypoechogenicity a nd posterior shadowing suggesting some air of uncertain origin in this region. CT abdomen pelvis exam ination is recommended for more definitive evaluation. IMPRESSION: Limited examination; CT abdomen pelvis is recommended Reviewed, dictated and finalized at [facility] Reviewed, dictated and finalized at [facility].
[2023-03-22 09:00] VITALS: BP 118/75; PULSE 70; RESP 20; TEMP 36.3; O2SAT 100
[2023-03-22 10:38] VITALS: BP 113/70; PULSE 62; RESP 18; O2SAT 98
[2023-03-22 10:44] LABS: Basophils Absolute Auto 0.1 K/mm3 (0.0-0.1); Basophils Percent Auto 0.5 % (0.2-1.2); Eosinophils Absolute Auto 0.4 K/mm3 (0-0.3); Eosinophils Percent Auto 2.6 % (0-4.4); Hematocrit 34.3 % (37.0-47.0); Hemoglobin 11.8 g/dL (12.0-15.0); Immature Granulocyte Absolute 0.09 K/mm3 (0.00-0.031); Immature Granulocyte Percent A 0.7 % (0-0.5); Lymphocytes Absolute Auto 1.58 K/mm3 (0.9-3.2); Lymphocytes Percent Auto 11.5 % (18.3-44.2); Mean Corpuscular HGB Conc 34.4 g/dl (32-36); Mean Corpuscular Hemoglobin 31.8 pg (26-34); Mean Corpuscular Volume 92.5 fl (80-100); Mean Platelet Volume 10.9 fl (7.4-10.4); Monocytes Absolute Auto 0.7 K/mm3 (0.1-0.6); Monocytes Percent Auto 4.9 % (2.6-8.5); Neutrophils Percent Auto 79.8 % (45.5-73.1); Platelet Count Result 179 k/mm3 (150-375); Red Blood Count 3.71 M/mm3 (4.2-5.4); Red Cell Distribution Width 12.1 % (11.5-14.5); White Blood Count 13.7 K/mm3 (4.5-10.0)
[2023-03-22 10:54] LABS: INR 0.9; Prothrombin Time 12.9 Seconds (11.1-14.7)
[2023-03-22 10:56] LABS: Alanine Aminotransferase 13 U/L (6-35); Albumin Level 3.4 g/dL (3.5-5.1); Alkaline Phosphatase 72 U/L (38-126); Anion Gap 4 mmol/L (8-16); Aspartate Amino Transferase 26 U/L (14-36); Bilirubin,Total 0.5 mg/dL (0.2-1.3); Blood Urea Nitrogen 9 mg/dL (7-17); Calcium 8.4 mg/dL (8.4-10.2); Carbon Dioxide 25 mmol/L (22-30); Chloride 104 mmol/L (98-107); Estimated CRCL calculation 131 ml/min; Estimated Glomerular Filt Rate > 60; Glucose 63 mg/dL (65-110); Potassium 4.1 mmol/L (3.4-5.0); Sodium 133 mmol/L (137-145)
--- NOTE | 2023-03-22 11:16 | ED.GENADULT ---
HPI - General Adult General Chief complaint: Recheck/Abnormal Lab/Rx <Mo Mclean MD - Last Filed: 03/27/23 20:02> Stated complaint: post op problem, drainage from surgical site <Mo Mclean MD - Last Filed: 03/27/23 20:02> Time Seen by Provider: 03/22/23 10:17 <Mo Mclean MD - Last Filed: 03/27/23 20:02> History of Present Illness HPI narrative: Patient is a 33-year-old female who is 23 weeks with twins who presents ER with abdominal infection. Patient underwent dermoid cyst excision last week. She had a follow-up 4 days ago and was doing well. Since then she has developed swelling and redness to her abdominal wall at the umbilicus and is having purulent drainage. No fevers or chills or sweats. She is not on any oral antibiotics at this time. <Mo Mclean MD - Last Filed: 03/27/23 20:02> Related Data Home medications: Home Medications Medication Instructions Recorded Confirmed fluoxetine 20 mg capsule 20 mg PO DAILY 06/15/22 06/15/22 fluticasone propionate 110 2 puff inhalation DAILY 06/15/22 06/15/22 mcg/actuation HFA aerosol inhaler (Flovent HFA) hydroxyzine pamoate 25 mg capsule 25 mg PO TID PRN Anxiety 06/15/22 06/15/22 lamotrigine 100 mg tablet 10 mg PO DAILY 06/15/22 06/15/22 <Mo Mclean MD - Last Filed: 03/27/23 20:02> Allergies/adverse reactions: Allergies Allergy/AdvReac Type Severity Reaction Status Date / Time No Known Allergies Allergy Mild Verified 03/22/23 10:43 <Mo Mclean MD - Last Filed: 03/27/23 20:02> Review of Systems Review of Systems: All systems reviewed & are unremarkable except as noted in HPI and below <Mo Mclean MD - Last Filed: 03/27/23 20:02> Constitutional: Constitutional: Denies chills, Denies fatigue and Denies fever(s) <Mo Mclean MD - Last Filed: 03/27/23 20:02> ENT: Denies nasal congestion and Denies sore throat <Mo Mclean MD - Last Filed: 03/27/23 20:02> Cardiovascular: Cardiovascular: Denies chest pain, Denies rapid heart rate and Denies radiating jaw, neck or arm pain <Mo Mclean MD - Last Filed: 03/27/23 20:02> Respiratory: Respiratory: Denies cough, Denies dyspnea and Denies wheezing <Mo Mclean MD - Last Filed: 03/27/23 20:02> Gastrointestinal: Gastrointestinal: Denies abdominal pain, Denies diarrhea, Denies nausea and Denies vomiting <Mo Mclean MD - Last Filed: 03/27/23 20:02> Genitourinary: Genitourinary: Denies abnormal vaginal bleeding, Denies flank pain and Denies vaginal discharge <Mo Mclean MD - Last Filed: 03/27/23 20:02> Integumentary/Breasts: Skin/Breast: Reports erythema and Reports skin ulcer <Mo Mclean MD - Last Filed: 03/27/23 20:02> Comments: Purulent drainage possible abscess <Mo Mclean MD - Last Filed: 03/27/23 20:02> PMFSH Past Medical History Medical History: Medical History (Updated 03/23/23 @ 00:00 by Keegan Rosenberg) Adnexal mass Alcohol abuse Alcohol withdrawal delirium Binge eating disorder DVT prophylaxis Elevated LFTs Hypokalemia IUP (intrauterine ), incidental Tobacco abuse <Mo Mclean MD - Last Filed: 03/27/23 20:02> Surgical History Surgical History: Surgical History No pertinent past surgical history <Mo Mclean MD - Last Filed: 03/27/23 20:02> Social History Social History: Social History (Updated 12/22/20 @ 11:46 by Kolby Matta MD) Social History: smokes 1/2ppf over the past few months. Alcohol use as mentioned above. She has been staying at a hotel in [place]. Has been smoking Crack cocaine. Recently tested for hepatitis and HIV which were negative. She refuses re-testing. Does not work. Denies selling sex for money/drugs. Full code. Nominates her mother to be the individual to make medical decisions for her if she i
[2023-03-22] MEDS: PIPERACILLN/TAZ 3.375GM/NS50ML 3.375 GM/50 ML BAG IVPB (14:21)
[2023-03-22 14:32] VITALS: BP 120/76; PULSE 87; RESP 16; O2SAT 99
--- NOTE | 2023-03-22 14:57 | PC.NURSE ---
patient declines ambulance transport and verbalized understanding of going by private car.
== END 2023-03-22 14:59 | disposition short-term general hospital (02) ==
PROVIDERS: Emergency Medicine; Emergency Provider General Practice; PCP Internal Medicine
DX: O26.892 Other specified pregnancy related conditions, second trimester (principal); L76.82 Other postprocedural complications of skin and subcutaneous tissue; L03.311 Cellulitis of abdominal wall; O99.332 Smoking (tobacco) complicating pregnancy, second trimester; Z3A.23 23 weeks gestation of pregnancy; Z86.718 Personal history of other venous thrombosis and embolism
CPT/HCPCS: 36415; 76705; 80053; 85025; 85610; 85730; 87070; 87147; 87181; 87186; 87205; 96365; 99284; J2543